=== PATIENT | male | born 1990 | race Caucasian/White ===

== ENCOUNTER 2019-10-25 23:23 | Emergency (ER) | payer OTHER ==
[2019-10-25 23:45] VITALS: BP 161/97; PULSE 68; TEMP 99.2; BMI 33.0
--- NOTE | 2019-10-26 00:24 | PDOC ---
History of Present Illness - General Chief Complaint: Blood Pressure Problem Stated Complaint: BLOOD PRESSURE PROBLEM Time Seen by Provider: 10/25/19 23:46 History Source: Patient Exam Limitations: No Limitations - History of Present Illness Initial Comments: 10/26/19 00:20 HISTORY OF PRESENT ILLNESS: 29-year-old male denies comorbidities presents emergency department for evaluation of chest tightness over the past 4 days. Patient reports he was concerned and checked his blood pressure at his family's house was noted to be elevated. Patient took his uncles blood pressure medication he is unsure but it was "L something potassium" which helped his blood pressure come down. Patient denies any change in symptoms after taking the medication. Patient was at home today was having continued symptoms noted his blood pressure to be slightly elevated on a wrist blood pressure monitor and took another 1 of his uncles blood pressure pills. Patient reports symptoms not improved but approximately 3 hours after taking the medication began to feel slightly lightheaded which resolved after a few minutes. He denies any fevers, chills, cough, shortness of breath. No recent travel or sick contacts. PAST MEDICAL HISTORY: Denies past medical history SURGICAL HISTORY: Denies Family history: Diabetes, hypertension, no history of sudden cardiac at any age ALLERGIES: No known drug allergies REVIEW OF SYSTEMS General/Constitutional: Denies fever or chills. Denies weakness, weight change. HEENT: Denies change in vision. Denies ear pain or discharge. Denies sore thro at. Cardiovascular: See HPI Respiratory: Denies cough, wheezing, or hemoptysis. Gastrointestinal: Denies nausea, vomiting, diarrhea or constipation. Denies rectal bleeding. Genitourinary: Denies dysuria, frequency, or change in urination. Musculoskeletal: Denies joint or muscle swelling or pain. Denies neck or back pain. Skin and breasts: Denies rash or easy bruising. Neurologic: Denies headache, vertigo, loss of consciousness, or loss of sensation. Psychiatric: Denies depression or anxiety. Endocrine: Denies increased thirst. Denies abnormal weight change. Hematologic/Lymphatic: Denies anemia, easy bleeding, or history of blood clots. Allergic/Immunologic: Denies hives or skin allergy. Denies latex allergy. PHYSICAL EXAM General Appearance: Well-appearing, appropriately dressed. No apparent distress, no intoxication. HEENT: EOMI, PERRLA, normal ENT inspection, normal voice, TMs normal, pharynx normal. No conjunctival pallor. No photophobia, scleral icterus. Neck: Supple. Trachea midline. No tenderness, rigidity, carotid bruit, stridor, lymphadenopathy, or thyromegaly. Respiratory/Chest: Lungs CTAB. No shortness of breath, chest tenderness, respiratory distress, accessory muscle use. No crackles, rales, rhonchi, stridor, wheezing, dullness Cardiovascular: RRR. S1, S2. No JVD, murmur, bradycardia, tachycardia. Vascular Pulses: Dorsalis-Pedis (R): 2+, Dorsalis-Pedis (L): 2+ Gastrointestinal/Abdominal: Normal bowel sounds. Abdomen soft, non-distended. No tenderness or rebound tenderness. No organomegaly, pulsatile mass, guarding, hernia, hepatomegaly, splenomegaly. Neurologic: mayonnaise mixer II-XII intact. Fully oriented, alert. Appropriate mood/affect. Motor strength 5/5. No appreciable EOM palsy, facial droop or sensory deficit. Past History - Past Medical History Allergies/Adverse Reactions: Allergies Allergy/AdvReac Type Severity Reaction Status Date / Time No Known Allergies Allergy Verified 10/25/19 23:36 Home Medications: Ambulatory Orders NK [No Known Home Medication] 10/26/19 COPD: No - Psycho Social/Smoking Cessation Hx Smoking History: Never smoked *Physical Exam - Vital Signs Last Vital Signs Temp Pulse Resp BP Pulse Ox 99.2 F 68 18 161/97 100 10/25/19 23:33 10/25/19 23:33 10/25/19 23:33 10/25/19 23:33 10/25/19 23:33 Heart Score/ECG Review - History History: Slightly suspicious - Electrocardiogram EKG: Normal - Age Age: </= 45 - Risk Factors Based on the list above the patient has:: No risk factors known - Troponin Troponin: </= normal limit - Score Heart Score - Total: 0 ED Treatment Course - LABORATORY CBC & Chemistry Diagram: 10/26/19 00:58 10/26/19 00:58 - RADIOLOGY Radiology Studies Ordered: Category Date Time Status CHEST PA & LAT [RAD] Stat Radiology 10/26/19 00:10 Ordered Medical Decision Making - Medical Decision Making 10/26/19 00:22 A/P: 29-year-old male with chest tightness for 4 days Physical exam is unremarkable Differential diagnosis includes but is not limited to-ACS, anxiety, pneumonia, URI, GERD, PE, MSK Less likely PE as patient is PERC score of 0. This patient has not been febrile and is not coughing less likely infectious etiology. Given patient's age ACS is unlikely Labs including cardiac profile Chest x-ray EKG performed in triage-sinus rhythm with rate of 71. Normal intervals present with a QTC of 404 ms. Normal axis. No ischemic changes noted Urinalysis Reassess-likely discharge home as patient has follow-up with primary doctor tomorrow morning. 10/26/19 01:39 Laboratory Tests 10/26/19 10/26/19 00:58 00:58 WBC 10.8 H RBC 4.76 Hgb 15.0 Hct 43.3 MCV 90.8 MCH 31.5 MCHC 34.7 RDW 12.8 Plt Count 379 MPV 8.1 Absolute Neuts (auto) 8.5 H Neutrophils % 78.5 Lymphocytes % 14.1 Monocytes % 6.2 Eosinophils % 0.4 Basophils % 0.8 Nucleated RBC % 0 Sodium 140 Potassium 4.0 Chloride 104 Carbon Dioxide 28 Anion Gap 8 BUN 10.3 Creatinine 0.8 Est GFR (CKD-EPI)AfAm 137.96 Est GFR (CKD-EPI)NonAf 119.03 Random Glucose 93 Calcium 9.0 Magnesium 2.1 Total Bilirubin 0.4 AST 27 ALT 68 H Alkaline Phosphatase 88 Creatine Kinase 111 Troponin I < 0.02 Total Protein 8.3 H Albumin 4.3 Chest x-ray as read by me: Angles sharp. Cardiac silhouette is within normal limits. Lung burk clear without infiltrate or consolidation noted. Likely anxiety as laboratory testing is unremarkable with initial troponin of less than 0.02. As patient has a normal EKG, normal chest x-ray and normal lab testing I feel it is safe to discharge home the patient to follow-up with his doctor tomorrow as previously scheduled. I discussed the physical exam findings, ancillary test results and final diagnoses with the patient. I answered all of the patient's questions. The patient was satisfied with the care received and felt comfortable with the discharge plan and treatment plan. The patient will call their primary care physician within 24 hours to arrange follow-up and will return to the Emergency Department with any new, persistent or worsening symptoms. Portions of this note have been documented using voice recognition software. As a result, errors may occur in the natural sciences manager process. Effort has been made to correct all grammatical and natural sciences manager error, but some may have been missed which may produce sporadic inaccurate natural sciences manager or nonsensical phrases. 10/26/19 01:41 10/26/19 01:42 Discharge - Discharge Information Problems reviewed: Yes Clinical Impression/Diagnosis: Anxiety Condition: Stable Disposition: HOME - Admission No - Follow up/Referral Referrals: [facility] [Provider Group] - Patient Discharge Instructions Additional Instructions: Eat a well-balanced diet. Do not take prescription medication that has not been prescribed for you. Keep your previously scheduled appointment tomorrow. You have been given a referral for a primary doctor here at [facility]. Return to the emergency department for any new or worsening symptoms. Thank you very much for choosing us to provide your emergent healthcare needs. - Post Discharge Activity
[2019-10-26 01:09] LABS: BASO % 0.8 % (0-2.0); EOS % 0.4 % (0-4.5); HEMATOCRIT 43.3 % (35.4-49); LYMPH % 14.1 % (8-40); MCH 31.5 pg (25.7-33.7); MCHC 34.7 g/dl (32.0-35.9); MEAN CELL VOLUME 90.8 fl (80-96); MEAN PLT VOLUME 8.1 fl (7.5-11.1); MONO % 6.2 % (3.8-10.2); NEUT % 78.5 % (42.8-82.8); PLATELET COUNT 379 K/MM3 (134-434); RBC 4.76 M/mm3 (4.00-5.60); RDW 12.8 % (11.9-15.9); WHITE BLOOD COUNT 10.8 K/mm3 (4.0-10.0)
[2019-10-26 01:36] LABS: ALBUMIN 4.3 g/dl (3.4-5.0); ALK PHOS 88 U/L (45-117); ANION GAP 8 MMOL/L (8-16); BILIRUBIN,TOTAL 0.4 mg/dL (0.2-1); BLOOD UREA NITROGEN 10.3 mg/dL (7-18); CHLORIDE 104 mmol/L (98-107); CO2 28 mmol/L (21-32); CREATININE 0.8 mg/dL (0.55-1.3); GLUCOSE,RANDOM 93 mg/dL (74-106); MAGNESIUM 2.1 mg/dL (1.8-2.4); SGOT/AST 27 U/L (15-37); SGPT/ALT 68 U/L (13-61); SODIUM 140 mmol/L (136-145); TOT PROT 8.3 g/dl (6.4-8.2)
--- NOTE | 2019-10-26 16:09 | EKG ---
Test Reason : Blood Pressure : / mmHG Vent. Rate : 071 BPM Atrial Rate : 071 BPM P-R Int : 148 ms QRS Dur : 102 ms QT Int : 372 ms P-R-T Axes : 037 027 017 degrees QTc Int : 404 ms NORMAL SINUS RHYTHM NORMAL ECG NO PREVIOUS ECGS AVAILABLE Confirmed by UMM KIM MD ([id number]) on 10/26/2019 4:08:58 PM Referred By: Confirmed By:UMM KIM MD
== END 2019-10-26 01:48 | disposition home or self-care (01) ==
LOC: JER 23:23
DX: F41.9 Anxiety disorder, unspecified (principal)
CPT/HCPCS: 36415; 71046-TC-FY; 80053; 82550; 83735; 84484; 85025; 93005; 93010; 99285-25